=== PATIENT | male | born 1945 | race Caucasian/White ===

== ENCOUNTER → 2023-12-14 | Outpatient (CLI) | payer MEDICARE, BC ==
[~2023-12-14] MED LIST: ACET500T15 PO; ALFU10TA23 PO; ALLE180T33 PO; ATEN25TA PO; CVS400CA10 PO; FLON1SPR; FLUO-365 PO; HYDR25TA6 PO; LAMI1TAB8 PO; SILD50TA PO; SYNT50TA PO; VITA100066 PO; VITMTA PO; WARF-23 PO
[2023-12-14 13:06] LABS: INR 2.54; PROTHROMBIN TIME 26.4 SECONDS (12.5-14.5)
== END ==
LOC: M PLALAB 11:28
DX: Z79.01 Long term (current) use of anticoagulants (principal)